=== PATIENT | female | born 1960 | race Caucasian/White ===

== ENCOUNTER 2023-01-26 12:10 | Emergency (ER) | payer OTHER, SELFPAY ==
[2023-01-26 12:19] VITALS: BP 178/89; PULSE 66; RESP 18; TEMP 36.7; O2SAT 99
--- NOTE | 2023-01-26 12:33 | ED.GENADULT ---
HPI - General Adult General Chief complaint: Hypertension Stated complaint: High blood pressure Time Seen by Provider: 01/26/23 12:25 Source: patient Mode of arrival: ambulatory Limitations: no limitations History of Present Illness HPI narrative: 62-year-old female presenting today after an episode earlier this morning, couple hours ago, where she felt shaky and sweaty. She states that the episode lasted about a half an hour and has since resolved. She was concerned however because her blood pressure was checked at that time with elevated in the 160s systolic. Patient states that she generally does not have any hypertension. She denies any recent illnesses. She denies chest pain, shortness of breath or cough. She denies abdominal discomfort. She denies any diarrhea or constipation she denies any urinary symptoms. She denies vomiting. States that she felt a little bit nauseous. Patient states that her past medical history is benign, takes no medications and is healthy. She denies any tobacco use. Family history significant for a grandmother with heart disease at the age of 88. Related Data Home Medications Medication Instructions Recorded Confirmed epinephrine 0.3 mg/0.3 mL IM 01/26/23 injection, auto-injector omeprazole 20 mg capsule,delayed 20 mg PO BID 01/26/23 01/26/23 release Allergies Allergy/AdvReac Type Severity Reaction Status Date / Time No Known Drug Allergies Allergy Verified 01/26/23 12:19 Review of Systems Status of ROS: Reports: 10 or more systems reviewed and unremarkable except as noted in History and below [facility] Social History Smoking Status: Never smoker Non-prescribed substance use: denies use Exam Narrative: Exam Narrative: Obese, well-developed patient in no acute distress. Alert and oriented. Answers questions appropriately. Mood and affect are appropriate. Thoughts are goal oriented and rational. No tangential or magical thinking noted. Patient speaks in full sentences without needing to catch their breath. HEENT: Normocephalic atraumatic. Pupils are equally round reactive to light. Extraocular muscles are intact. Conjunctivae are moist without any icterus noted. Moist mucous membranes. Posterior pharynx is normal. Neck is soft without any lymphadenopathy or thyromegaly. No masses are appreciated. Cardiovascular: Heart is regular rate and rhythm S1 and S2 are present without any murmurs. Lungs: Clear to auscultation bilaterally no wheezes rhonchi or rales are appreciated. Patient takes deep breaths without any discomfort. Abdomen: Soft and nontender nondistended with normal bowel sounds. No guarding or rebound. No masses or organomegaly appreciated. Extremities: Bilateral lower extremities are without edema. Skin: Well perfused without any obvious rashes. Const: Vital Signs, click to edit/add: Vital Signs - 24 hr 01/26/23 12:19 Temperature 98.1 F Pulse Rate [Right Pulse Oximeter] 66 Respiratory Rate 18 Blood Pressure [Ri ght Upper Arm] 178/89 H Pulse Oximetry 99 Oxygen Delivery Me thod Room Air Course Course ED Course: EKG, read by me, shows normal sinus rhythm with a pulse of 65. We did some blood work to rule out any acute abnormalities that could cause episode of diaphoresis and shakiness: I do not see any electrolyte abnormalities, hemoglobin is slightly above normal, there is no white count or evidence of infection, remainder blood work was unremarkable including normal troponin. Patient remained asymptomatic while she was here. Vital Signs Vital signs: Initial Vital Signs Temperature 98.1 F 01/26/23 12:19 Temperature Source Temporal Artery Scan 01/26/23 12:19 Pulse Rate 66 01/26/23 12:19 Respiratory Rate 18 01/26/23 12:19 Blood Pressure 178/89 H 01/26/23 12:19 Blood Pressure Mean 118 H 01/26/23 12:19 Blood Pressure Position Sitting 01/26/23 12:19 Pulse Oximetry 99 01/26/23 12:19 Oxygen Delivery Method Room Air 01/26/23 12:19 Vital Signs Temperature 98.1 F 01/26/23 12:19 Pulse Rate 66 01/26/23 12:19 Respiratory Rate 18 01/26/23 12:19 Blood Pressure 178/89 H 01/26/23 12:19 Pulse Oximetry 99 01/26/23 12:19 Oxygen Delivery Method Room Air 01/26/23 12:19 Temperature 98.1 F 01/26/23 12:19 Pulse Rate 66 01/26/23 12:19 Respiratory Rate 18 01/26/23 12:19 Blood Pressure 178/89 H 01/26/23 12:19 Pulse Oximetry 99 01/26/23 12:19 Oxygen Delivery Method Room Air 01/26/23 12:19 Medical Decision Making MDM Narrative Medical decision making narrative: 62-year-old female with an episode of shakiness and sweating. Episode has since resolved and she has been feeling normal. No significant abnormalities noted on workup today. We discussed resting and increasing fluid intake. We discussed following up primary care provider for blood pressure recheck. Lab Data Lab results reviewed: Yes I reviewed the patient's lab results Labs: Lab Results 01/26/23 01/26/23 01/26/23 Range/Units 12:25 12:56 12:58 WBC 7.82 (4.50-11.00) K/uL RBC 5.77 H (4.00-5.20) m/uL Hgb 16.4 H (12.0-16.0) gm/dL Hct 50.0 (33.0-51.0) % MCV 87 (80-100) fL MCH 28 (26-34) pg MCHC 33 (32-36) gm/dL RDW Coeff of Bernice 12.7 (11.5-15.5) % Plt Count 212 (140-440) K/uL Neut % (Auto) 65.5 (42.0-72.0) % Lymph % (Auto) 24.3 (20-44) % [place] % (Auto) 6.9 (0.0-11.0) % Eos % (Auto) 2.8 (0.0-7.0) % Baso % (Auto) 0.5 (0.0-3.0) % Neut # (Auto) 5.12 (1.7-7.0) K/uL Lymph # (Auto) 1.90 (0.90-2.90) K/uL [place] # (Auto) 0.50 (0.00-0.90) K/UL Eos # (Auto) 0.22 (0.00-0.50) K/uL Baso # (Auto) 0.04 (0.00-0.30) K/uL Abs Immat Gran (auto) 0.00 (0.00-0.30) K/uL Imm/Tot Granulo (auto) 0.0 % Sodium 139 (135-149) mmol/L Potassium 4.2 (3.6-5.1) mmol/L Chloride 108 (96-114) mmol/L Carbon Dioxide 19 L (20-32) mmol/L Anion Gap 12 (7-15) mEq/L BUN 16 (7-30) mg/dL Creatinine 0.8 (0.5-1.5) mg/dL Estimated GFR 83 ml/min Glucose 97 (60-115) mg/dL Calcium 9.1 (8.4-10.6) mg/dL Total Bilirubin 0.8 (0.1-1.5) mg/dL Direct Bilirubin 0.0 (0.0-0.5) mg/dL AST 38 H (12-35) U/L ALT 36 H (4-35) U/L Alkaline Phosphatase 118 (40-150) U/L Troponin I < 0.01 L (0.01-0.04) ng/mL Total Protein 7.5 (6.0-8.3) g/dL Albumin 4.3 (3.3-5.0) g/dL Urine Color Yellow (Yellow) Urine Appearance Clear (Clear) Urine pH 6.5 (5.0-8.5) Ur Specific [place] <= 1.005 (1.000-1.030) Urine Protein Negative (Negative) Urine Glucose (UA) Negative (Negative) Urine Ketones Negative (Negative) Urine Blood Negative (Negative) Urine Nitrite Negative (Negative) Urine Bilirubin Negative (Negative) Urine Urobilinogen 0.2 (0.2-1.0) Ur Leukocyte Esterase Negative (Negative) Urine RBC 0-2 (0-2) Urine WBC 0-2 (0-5) Ur Squamous Epith Cells None (None-Few) Urine Bacteria None (None) SARS-CoV-2 (PCR) Negative SARS-CoV-2 (Negative) ECG Data Attestation: I personally reviewed and interpreted this ECG as follows: Discharge Plan Discharge Clinical Impression: Sweating, Shakiness Patient Disposition: Home, Self-Care Condition: Improved Additional Instructions: Recommend you get some rest today and increase your water intake. Follow-up with your primary care provider for a blood pressure recheck next week. Prescriptions: No Action epinephrine 0.3 mg/0.3 mL auto-injector IM omeprazole 20 mg capsule,delayed release(DR/EC) 20 mg PO BID Follow Up/Referrals: Kati Martinez DO [Primary Care Provider] - Stand Alone Forms: [facility] Info Instructions
[2023-01-26 13:08] LABS: Basophils Absolute Auto 0.04 K/uL (0.00-0.30); Basophils Percent Auto 0.5 % (0.0-3.0); Eosinophils Absolute Auto 0.22 K/uL (0.00-0.50); Eosinophils Percent Auto 2.8 % (0.0-7.0); Hemoglobin* 16.4 gm/dL (12.0-16.0); Lymphocytes Percent Auto 24.3 % (20-44); Mean Corpuscular HGB Conc 33 gm/dL (32-36); Mean Corpuscular Hemoglobin 28 pg (26-34); Mean Corpuscular Volume 87 fL (80-100); Monocytes Percent Auto 6.9 % (0.0-11.0); Neutrophils Absolute Auto 5.12 K/uL (1.7-7.0); Neutrophils Percent Auto 65.5 % (42.0-72.0); Platelet Count* 212 K/uL (140-440); RDW Coefficient of Variation % 12.7 % (11.5-15.5); Red Blood Count 5.77 m/uL (4.00-5.20); White Blood Count* 7.82 K/uL (4.50-11.00)
[2023-01-26 13:10] LABS: Slide Review Reflex No
[2023-01-26 13:26] LABS: Appearance Urine Clear (Clear); Bilirubin Urine Negative (Negative); Blood Urine Negative (Negative); Color Urine Yellow (Yellow); Glucose Urine Negative (Negative); Ketones Urine Negative (Negative); Leukocyte Esterase Urine Negative (Negative); Nitrite Urine Negative (Negative); Protein Urine Negative (Negative); Specific Gravity Urine <= 1.005 (1.000-1.030); Urobilinogen Urine 0.2 (0.2-1.0); pH Urine 6.5 (5.0-8.5)
[2023-01-26 13:26] LABS: Chloride* 108 mmol/L (96-114); Sodium* 139 mmol/L (135-149)
[2023-01-26 13:27] LABS: Albumin* 4.3 g/dL (3.3-5.0); Potassium* 4.2 mmol/L (3.6-5.1)
[2023-01-26 13:29] LABS: Anion Gap 12 mEq/L (7-15); Carbon Dioxide* 19 mmol/L (20-32); Creatinine* 0.8 mg/dL (0.5-1.5); Estimated Glomerular Filt Rate 83 ml/min
[2023-01-26 13:30] LABS: Alkaline Phosphatase* 118 U/L (40-150); Aspartate Amino Transferase* 38 U/L (12-35); Bilirubin Total* 0.8 mg/dL (0.1-1.5); Blood Urea Nitrogen* 16 mg/dL (7-30); Calcium* 9.1 mg/dL (8.4-10.6); Glucose* 97 mg/dL (60-115); Total Protein* 7.5 g/dL (6.0-8.3)
[2023-01-26 13:31] LABS: Alanine Aminotransferase* 36 U/L (4-35)
[2023-01-26 13:44] LABS: Troponin I* < 0.01 ng/mL (0.01-0.04)
[2023-01-26 13:44] LABS: SARS PCR* Negative SARS-CoV-2 (Negative)
[2023-01-26 13:45] LABS: RBC Urine 0-2 (0-2); WBC Urine 0-2 (0-5)
== END 2023-01-26 14:11 | disposition home or self-care (01) ==
PROVIDERS: Emergency Provider Family Medicine; PCP Family Medicine
DX: R61 Generalized hyperhidrosis (principal); R25.1 Tremor, unspecified
CPT/HCPCS: 36415; 80048; 80076; 81001; 84484; 85025; 87086; 87635; 93005; 99283; 99284